=== PATIENT | male | born 1960 | race Two or more races ===

== ENCOUNTER 2022-10-23 11:28 | Emergency (ER) | payer MEDICAID ==
[2022-10-23 12:31] VITALS: BP 113/62
[2022-10-23] MEDS ORDERED: CEPH500C PO (13:19)
[2022-10-23] MEDS ORDERED: TETANUS-DIPTH-ACEL PERTUSSIS 0.5ML SYR Tdap IM ONE (13:30)
== END 2022-10-23 13:35 | disposition home or self-care (01) ==
LOC: ER 11:28
DX: S91.332A Puncture wound without foreign body, left foot, initial encounter (principal); W22.8XXA Striking against or struck by other objects, initial encounter; Y93.89 Activity, other specified; Y92.89 Other specified places as the place of occurrence of the external cause; Y99.8 Other external cause status
CPT/HCPCS: 73630; 90471; 90715